=== PATIENT | male | born 1980 | race Caucasian/White ===

== ENCOUNTER 2016-10-12 07:58 | Emergency (ER) | payer OTHER ==
[~2016-10-12] VITALS: Ht 172.7 cm; Wt 65.0 kg
[~2016-10-12 07:58] MED LIST: ZOFR4TAB3 SL
[2016-10-12 08:00] VITALS: BP 126/80; PULSE 80; RESP 20; TEMP 97.6; O2SAT 99
[2016-10-12 08:25] VITALS: O2SAT 98
--- NOTE | 2016-10-12 08:28 | PD ---
HPI Chief Complaint: Chest Pain Time Seen by Provider: 08:17 Travel History International Travel<30 days: No Contact w/Intl Traveler<30days: No Traveled to known affect area: No History of Present Illness HPI 36 years old male complains of chest pain. Patient states the pain started about 5 hours prior coming to the emergency room. Patient states the pain is sharp and stabbing pain localized to left low rib cage. Patient denies any pain radiation. Patient states the pain is worse with deep breathing. Patient denies any nausea vomiting diaphoresis. Patient denies any palpitation. Patient denies history of CAD. Patient denies history hypertension, diabetes, dyslipidemia. Patient is a smoker. Patient states that he drank alcohol recently. Patient denies any history of pancreatitis or GI issue. On a scale from 1-10 the pain is an 8. Patient denies any coughing congestion. Patient denies any illicit drug abuse. PFSH Past Medical History Diminished Hearing: No Social History Alcohol Use: Yes (OCC) Tobacco Use: Yes (1 PPD) Substance Use: No Allergies-Medications (Allergen,Severity, Reaction): Coded Allergies: No Known Allergies (Verified , 01/24/16) Reported Meds & Prescriptions Reported Meds & Active Scripts Active Zofran ODT (Ondansetron HCl) 4 Mg Tab 4 Mg SL Q6HR FOR NAUSEA/VOMITING Review of Systems General / Constitutional: No: Fever Eyes: No: Visual changes HENT: No: Headaches Cardiovascular: Positive: Chest Pain or Discomfort Respiratory: No: Shortness of Breath Gastrointestinal: No: Abdominal Pain Genitourinary: No: Dysuria Musculoskeletal: No: Pain Skin: No Rash Neurologic: No: Weakness Psychiatric: No: Depression Endocrine: No: Polydipsia Hematologic/Lymphatic: No: Easy Bruising Physical Exam Narrative GENERAL: Well-nourished, well-developed patient. SKIN: Warm and dry. HEAD: Normocephalic. EYES: No scleral icterus. No injection or drainage. NECK: Supple, trachea midline. No JVD or lymphadenopathy. CARDIOVASCULAR: Regular rate and rhythm without murmurs, gallops, or rubs. RESPIRATORY: Breath sounds equal bilaterally. No accessory muscle use. GASTROINTESTINAL: Abdomen soft, nondistended. Patient has moderate tenderness on palpation epigastric and left upper quadrant of the abdomen. No rebound tenderness. No mass. MUSCULOSKELETAL: No cyanosis, or edema. BACK: Nontender without obvious deformity. No CVA tenderness. Neurologic exam normal. Data Data Last Documented VS Vital Signs Date Time Temp Pulse Resp B/P Pulse Ox O2 Delivery O2 Flow Rate FiO2 10/12/16 08:16 67 22 97 Room Air 10/12/16 08:00 97.6 126/80 Orders Electrocardiogram (10/12/16 ) Electrocardiogram (10/12/16 08:20) Complete Blood Count With Diff (10/12/16 08:20) Comprehensive Metabolic Panel (10/12/16 08:20) Prothrombin Time / Inr (Pt) (10/12/16 08:20) Act Partial Throm Time (Ptt) (10/12/16 08:20) Lipase (10/12/16 08:20) Urinalysis - C+S If Indicated (10/12/16 08:20) Alcohol (Ethanol) (10/12/16 08:20) Chest, Single Ap (10/12/16 08:20) Iv Access Insert/Monitor (10/12/16 08:20) Ecg Monitoring (10/12/16 08:20) Oximetry (10/12/16 08:20) Pantoprazole Inj (Protonix Inj) (10/12/16 08:30) Al-Mag Hy-Si 40-40-4 Mg/Ml Liq (Mag-Al P (10/12/16 08:30) Ggwmu-Jgxnfv-Enevbs-Pb Liq ( Liq (10/12/16 08:30) MDM Medical Decision Making Medical Screen Exam Complete: Yes Emergency Medical Condition: Yes Differential Diagnosis Differential diagnosis including musculoskeletal, angina, AK, PE, pneumothorax, gastritis, PUD, hepatitis, cholecystitis, colitis, UTI, pyelonephritis, nephrolithiasis. Narrative Course 36 years old male with left-sided chest pain and epigastric left upper quadrant abdominal pain. Protonix 40 mg IV given. Maalox 30 cc by mouth given. 10 cc by mouth given. Bentley Reyes MD Oct 12, 2016 08:28
[2016-10-12] MEDS ORDERED: PANTOPRAZOLE SODIUM 40 MG VIAL IV PUSH ONE (08:30)
[2016-10-12] MEDS ORDERED: ALUMINUM/MAGNESIUM/SIMETH 30 ML CUP PO ONE (08:30)
[2016-10-12] MEDS ORDERED: ATROPINE/SCOPOLAM/HYOSCYAM/PB ELIXIR 10 ML CUP PO ONE (08:30)
[2016-10-12 08:34] LABS: AUTOMATED NEUTROPHIL # 3.5 TH/MM3 (1.8-7.7); BASOPHIL # 0.1 TH/MM3 (0-0.2); BASOPHIL % 1.1 % (0.0-2.0); EOSINOPHIL # 0.2 TH/MM3 (0-0.4); EOSINOPHIL % 3.4 % (0.0-4.0); HEMATOCRIT 45.9 % (39.0-51.0); HEMO FLAGS DIFF FINAL; LYMPH % 28.9 % (9.0-44.0); LYMPHOCYTE # 1.8 TH/MM3 (1.0-4.8); MEAN CELL VOLUME 96.4 FL (80.0-100.0); MEAN CORPUSCULAR HEMOGLOBIN 34.5 PG (27.0-34.0); MEAN CORPUSCULAR HGB CONC 35.8 % (32.0-36.0); MONO % 10.2 % (0.0-8.0); NEUT % 56.4 % (16.0-70.0); PLATELET COUNT 236 TH/MM3 (150-450); RED BLOOD COUNT 4.76 MIL/MM3 (4.50-5.90); RED CELL DISTRIBUTION WIDTH 13.8 % (11.6-17.2); WHITE BLOOD COUNT 6.2 TH/MM3 (4.0-11.0)
[2016-10-12 08:48] LABS: INTERNATIONAL NORMALIZED RATIO 1.2 RATIO; PROTHROMBIN TIME - PATIENT 13.2 SEC (9.8-11.6)
--- NOTE | 2016-10-12 08:48 | RADRPT ---
EXAM DATE/TIME: 10/12/2016 08:31 [facility] COMPARISON: No previous studies available for comparison. INDICATIONS : Chest pain and shortness of breath. MEDICAL HISTORY : None. SURGICAL HISTORY : None. ENCOUNTER: Initial ACUITY: 1 day PAIN SCORE: 8/10 LOCATION: Left lower chest FINDINGS: A single view of the chest demonstrates the lungs to be symmetrically aerated without evidence of mas s, infiltrate or effusion. A few nodular foci in the right lower lobe. The cardiomediastinal contour s are unremarkable. Osseous structures are intact. CONCLUSION: No acute disease. A few nodular foci in the right lower lobe could be calcified granulomas. Donnell Montana MD on October 12, 2016 at 8:46 Board Certified Radiologist. This report was verified electronically.
[2016-10-12 08:57] LABS: APTT (PATIENT) 31.7 SEC (24.3-30.1)
[2016-10-12 09:00] LABS: ALKALINE PHOSPHATASE 95 U/L (45-117); ALT (GPT) 19 U/L (12-78); ANION GAP 10 MEQ/L (5-15); AST (GOT) 25 U/L (15-37); BICARBONATE 24.2 MEQ/L (21.0-32.0); BLOOD UREA NITROGEN 5 MG/DL (7-18); CHLORIDE 107 MEQ/L (98-107); GLOMERULAR FILTRATION RATE 80 ML/MIN (>89); POTASSIUM 4.1 MEQ/L (3.5-5.1); SODIUM (NA) 141 MEQ/L (136-145); TOTAL BILIRUBIN ADULT 0.4 MG/DL (0.2-1.0)
[2016-10-12] MEDS: RESP: ALBUTEROL 2.5 MG/IPRATROPIUM 0.5 MG NEB (SCH) INH (09:41)
[2016-10-12] MEDS ORDERED: SODIUM CHLOR 0.9% 1000 ML INJ 1,000 ML IV ONE (09:45)
[2016-10-12] MEDS ORDERED: ALBU6.7H INH (10:27)
[2016-10-12] MEDS ORDERED: FAMO1TAB37 PO (10:27)
[2016-10-12] MEDS ORDERED: PRED50 PO (10:27)
--- NOTE | 2016-10-12 10:27 | PD ---
Physical Exam Date Seen by Provider: Oct 12, 2016 Time Seen by Provider: 08:50 Narrative Patient signed out to me by Dr. Reyes, please see Dr. Reyes's note for further information. Coming in with left lower rib area and left upper quadrant abdominal pains. Nauseous, vomiting, has been coughing up greenish material. On exam, pulmonary exam shows bilateral mild wheezing with no crackles, not in respiratory distress. Abdominal exam shows mild left upper quadrant tenderness. EKG did not show any signs of acute changes. Chest x-ray shows no signs of acute pulmonary problems. Lower extremity exam did not reveal any signs of edema, calf tenderness. Patient is awake, alert, oriented 3. Laboratory Tests Test 10/12/16 08:30 Mean Corpuscular Hemoglobin 34.5 PG (27.0-34.0) Monocytes (%) (Auto) 10.2 % (0.0-8.0) Prothrombin Time 13.2 SEC (9.8-11.6) Activated Partial 31.7 SEC Thromboplast Time (24.3-30.1) Blood Urea Nitrogen 5 MG/DL (7-18) Estimat Glomerular Filtration 80 ML/MIN (>89) Rate Ethyl Alcohol Level 70 MG/DL (0-5) Last 24 hours Impressions Chest X-Ray 10/12/16 0820 Signed Impressions: Service Date/Time: October 08:31 - CONCLUSION: No acute disease. A few nodular foci in the right lower lobe could be calcified granulomas. Donnell oMntana MD Patient was given Protonix in the ER, IV fluids, and nebulizers. On reevaluation at 10 AM, patient is feeling improved, no longer is wheezing. At this point, abdomen is fairly benign and I do not suspect an acute intra- abdominal process. He does have alcohol on his system I suspect he may have some underlying alcoholic gastritis. In addition, he smokes and I think he has underlying bronchitis in this case. My plan would be to treat him for both and have him follow-up with primary care physician. Return for any worsening in symptoms as necessary. I have talked to the patient regarding smoking cessation and alcohol use of sensation in order to improve his symptoms. Patient states understanding. Data Data Last Documented VS Vital Signs Date Time Temp Pulse Resp B/P Pulse Ox O2 Delivery O2 Flow Rate FiO2 10/12/16 08:25 98 Room Air 10/12/16 08:16 67 22 10/12/16 08:00 97.6 126/80 Orders Electrocardiogram (10/12/16 ) Electrocardiogram (10/12/16 08:20) Complete Blood Count With Diff (10/12/16 08:20) Comprehensive Metabolic Panel (10/12/16 08:20) Prothrombin Time / Inr (Pt) (10/12/16 08:20) Act Partial Throm Time (Ptt) (10/12/16 08:20) Lipase (10/12/16 08:20) Urinalysis - C+S If Indicated (10/12/16 08:20) Alcohol (Ethanol) (10/12/16 08:20) Chest, Single Ap (10/12/16 08:20) Iv Access Insert/Monitor (10/12/16 08:20) Ecg Monitoring (10/12/16 08:20) Oximetry (10/12/16 08:20) Pantoprazole Inj (Protonix Inj) (10/12/16 08:30) Al-Mag Hy-Si 40-40-4 Mg/Ml Liq (Mag-Al P (10/12/16 08:30) Nfidv-Dcpfji-Gvlljv-Pb Liq ( Liq (10/12/16 08:30) Drug Screen, Random Urine (10/12/16 08:26) Creatine Kinase (Cpk) (10/12/16 08:27) Troponin I (10/12/16 08:27) Sodium Chlor 0.9% 1000 Ml Inj (Ns 1000 M (10/12/16 09:45) Albuterol-Ipratropium Neb (Duoneb Neb) (10/12/16 09:45) Labs Laboratory Tests Test 10/12/16 08:30 White Blood Count 6.2 TH/MM3 Red Blood Count 4.76 MIL/MM3 Hemoglobin 16.4 GM/DL Hematocrit 45.9 % Mean Corpuscular Volume 96.4 FL Mean Corpuscular Hemoglobin 34.5 PG Mean Corpuscular Hemoglobin 35.8 % Concent Red Cell Distribution Width 13.8 % Platelet Count 236 TH/MM3 Mean Platelet Volume 8.8 FL Neutrophils (%) (Auto) 56.4 % Lymphocytes (%) (Auto) 28.9 % Monocytes (%) (Auto) 10.2 % Eosinophils (%) (Auto) 3.4 % Basophils (%) (Auto) 1.1 % Neutrophils # (Auto) 3.5 TH/MM3 Lymphocytes # (Auto) 1.8 TH/MM3 Monocytes # (Auto) 0.6 TH/MM3 Eosinophils # (Auto) 0.2 TH/MM3 Basophils # (Auto) 0.1 TH/MM3 CBC Comment DIFF FINAL Differential Comment Prothrombin Time 13.2 SEC Prothromb Time International 1.2 RATIO Ratio Activated Partial 31.7 SEC Thromboplast Time Sodium Level 141 MEQ/L Potassium Level 4.1 MEQ/L Chloride Level 107 MEQ/L Carbon Dioxide Level 24.2 MEQ/L Anion Gap 10 MEQ/L Blood Urea Nitrogen 5 MG/DL Creatinine 1.05 MG/DL Estimat Glomerular Filtration 80 ML/MIN Rate Random Glucose 86 MG/DL Calcium Level 8.8 MG/DL Total Bilirubin 0.4 MG/DL Aspartate Amino Transf 25 U/L (AST/SGOT) Alanine Aminotransferase 19 U/L (ALT/SGPT) Alkaline Phosphatase 95 U/L Total Protein 7.4 GM/DL Albumin 4.1 GM/DL Lipase 82 U/L Ethyl Alcohol Level 70 MG/DL [facility] Medical Record Reviewed: Yes Supervised Visit with [place]: No Diagnosis Primary Impression: ACUTE BRONCHITIS, UNSPECIFIED Additional Impression: ALCOHOLIC GASTRITIS WITHOUT BLEEDING Med/Other Pt SpecificInfo: Prescription(s) given Scripts Prednisone 50 Mg Tab50 Mg PO DAILY #5 TAB Ref 0 Prov:Clarence Palmer MD 10/12/16 Albuterol 6.7 GM Inh (Proventil Hfa 6.7 GM Inh)90 Mcg/Act Aer2 Puff INH Q4-6H PRN (SHORTNESS OF BREATH) #1 INHALER Ref 0 Prov:Clarence Palmer MD 10/12/16 Famotidine (Pepcid)20 Mg Tab20 Mg PO BID #14 TAB Ref 0 Prov:Clarence Palmer MD 10/12/16 Disposition: 01 DISCHARGE HOME Condition: Stable Clarence Palmer MD Oct 12, 2016 10:27
[2016-10-12 10:45] LABS: CREATINE KINASE 164 U/L (39-308)
[2016-10-12 11:04] VITALS: BP 117/78; PULSE 78; RESP 20; TEMP 97.6; O2SAT 99
--- NOTE | 2016-10-13 06:49 | EKG ---
Date Performed: 10/12/2016 Time Performed: 08:22:03 PTAGE: 36 years EKG: Sinus rhythm NORMAL ECG INTERPRETATION BASED ON A DEFAULT AGE OF 40 YEARS NO PREVIOUS TRACING DOCTOR: Alon Mora Interpretating Date/Time 10/13/2016 06:46:35
== END 2016-10-12 11:28 | disposition home or self-care (01) ==
LOC: NEPE 07:58
DX: J20.9 Acute bronchitis, unspecified (principal); K29.20 Alcoholic gastritis without bleeding; F17.210 Nicotine dependence, cigarettes, uncomplicated; F10.10 Alcohol abuse, uncomplicated; Y90.3 Blood alcohol level of 60-79 mg/100 ml
CPT/HCPCS: 71010; 80053; 80320; 82550; 83690; 84484; 85025; 85610; 85730; 93005; 94640; 94664; 96361; 96374; 99285; C9113; J7030

== ENCOUNTER 2016-12-18 13:05 | Emergency (ER) | payer OTHER ==
[~2016-12-18] VITALS: Ht 170.2 cm; Wt 60.0 kg
[~2016-12-18 13:05] MED LIST changes: +ALBU6.7H INH; +FAMO1TAB37 PO; +PRED50 PO
[2016-12-18 13:10] VITALS: BP 135/96; PULSE 73; RESP 15; TEMP 98.8; O2SAT 97
--- NOTE | 2016-12-18 14:23 | PD ---
HPI Chief Complaint: Injury Time Seen by Provider: 14:23 Travel History International Travel<30 days: No Contact w/Intl Traveler<30days: No Traveled to known affect area: No History of Present Illness HPI 36-year-old male presents to emergency Department with complaint of right fifth toe pain from after someone at his job dropped a 55 gallon water barrel on his toe. He is requesting an x-ray because his job wants to know if the toe is fractured. He denies loss of sensation to the toe. Reports tenderness and edema to the toe. Has not taken any medications or tried any treatments to alleviate his symptoms. No known allergies. No other modifying factors or associated signs and symptoms. PFSH Past Medical History Medical History: Denies Significant Hx Diminished Hearing: No Tetanus Vaccination: > 5 Years Past Surgical History Surgical History: No Previous Surgery Social History Alcohol Use: Yes (OCC) Tobacco Use: Yes (1 PPD) Substance Use: No Allergies-Medications (Allergen,Severity, Reaction): Coded Allergies: No Known Allergies (Verified , 12/18/16) Reported Meds & Prescriptions Reported Meds & Active Scripts Active Ibuprofen 800 Mg Tab 800 Mg PO Q6HR PRN Review of Systems Except as stated in HPI: all other systems reviewed are Neg Physical Exam Narrative GENERAL: Well-nourished, well-developed male patient, in no acute distress SKIN: Warm and dry. HEAD: Atraumatic. Normocephalic. EYES: Pupils equal and round. No scleral icterus. No injection or drainage. ENT: Mucosa pink and moist. Airway patent. NECK: Trachea midline. CARDIOVASCULAR: Regular rate. RESPIRATORY: No accessory muscle use. GASTROINTESTINAL: Flat. MUSCULOSKELETAL: Right fifth toe is mildly edematous and without erythema or ecchymosis; with tenderness on palpation; less than 3 second cap refill; toes pink and warm; no obvious deformity. Right lower extremity supple and non- tense with 2+ pedal pulses and sensory intact. No obvious deformities. No clubbing. No cyanosis. No edema. NEUROLOGICAL: Awake and alert. Oriented 3. No obvious cranial nerve deficits. Motor grossly within normal limits. Normal speech. PSYCHIATRIC: Appropriate mood and affect; insight and judgment normal. Data Data Last Documented VS Vital Signs Date Time Temp Pulse Resp B/P Pulse Ox O2 Delivery O2 Flow Rate FiO2 12/18/16 13:10 98.8 73 15 135/96 97 Orders Toe (Min 2vws) (12/18/16 ) [facility] Medical Decision Making Medical Screen Exam Complete: Yes Emergency Medical Condition: Yes Medical Record Reviewed: Yes Differential Diagnosis Toe fracture, toe contusion, toe sprain Narrative Course 36-year-old male with right fifth toe injury. His work is requesting an x-ray because he wants to know if the toe is fractured. Right fifth toe x-ray ordered. 1505: Right fifth toe x-ray concludes no acute findings. Ibuprofen prescribed for home. Patient verbalizes understanding and agreement with treatment plan. Patient is medically cleared and stable for discharge. Discussed reasons to return to the emergency department. Instructed patient to follow up with primary care provider. Patient agrees with treatment plan. The patients vital signs are stable and the patient is stable for outpatient follow-up and treatment. Patient discharged home, stable and in no acute distress. Diagnosis Primary Impression: Injury of toe on right foot Qualified Code: S99.921A - Injury of toe on right foot, initial encounter Referrals: Primary Care Physician Patient Instructions: General Instructions Departure Forms: Tests/Procedures, Work Release Enter return to work date: Dec 18, 2016 Additional Instructions: Ibuprofen or Tylenol as directed and as needed for pain and inflammation Ice to affected area to reduce pain and inflammation Avoid aggravating activities; increase activity as tolerated Follow-up with primary care provider Return to the emergency department immediately with worsening of symptoms Med/Other Pt SpecificInfo: Prescription(s) given Scripts Ibuprofen 800 Mg [id number] Mg PO Q6HR PRN (PAIN) #30 TAB Ref 0 Prov:Nereida Marshall 12/18/16 Disposition: 01 DISCHARGE HOME Condition: Stable Nereida Marshall Dec 18, 2016 14:23
[2016-12-18] MEDS ORDERED: IBUP800T23 PO (14:53)
--- NOTE | 2016-12-18 15:00 | RADRPT ---
EXAM DATE/TIME: 12/18/2016 14:41 [facility] COMPARISON: No previous studies available for comparison. INDICATIONS : 55 lb water bucket fell on his right 5th digit 4 days ago. MEDICAL HISTORY : None. SURGICAL HISTORY : None. ENCOUNTER: Initial ACUITY: 4 - 6 days PAIN SCORE: 6/10 LOCATION: Right 5 th digit FINDINGS: Examination of the fifth digit of the right foot demonstrates no evidence of fracture or dislocation. No radiopaque foreign bodies are seen. The soft tissues are intact. CONCLUSION: No acute disease. Buzz Mittal MD on December 18, 2016 at 14:58 Board Certified Radiologist. This report was verified electronically.
== END 2016-12-18 15:52 | disposition home or self-care (01) ==
LOC: NEPK 13:05
DX: S99.921A Unspecified injury of right foot, initial encounter (principal); W20.8XXA Other cause of strike by thrown, projected or falling object, initial encounter; Y99.0 Civilian activity done for income or pay
CPT/HCPCS: 73660; 99283

== ENCOUNTER 2018-01-28 23:01 | Emergency (ER) | payer OTHER ==
[~2018-01-28] VITALS: Ht 175.3 cm; Wt 59.1 kg
[~2018-01-28 23:01] MED LIST changes: -ALBU6.7H INH; -FAMO1TAB37 PO; +IBUP1TAB7 PO; -PRED50 PO; -ZOFR4TAB3 SL
[2018-01-28 23:03] VITALS: BP 117/73; PULSE 81; RESP 16; TEMP 98.1; O2SAT 98
[2018-01-28] MEDS ORDERED: LIDOCAINE 1%/EPINEPHrine 1:100,000 SOLN 50 ML VIAL INFIL ONE (23:45)
[2018-01-28] MEDS ORDERED: TETANUS/DIPHTHERIA TOXOID ADULT 0.5 ML VIAL IM ONE (23:45)
--- NOTE | 2018-01-28 23:45 | PD ---
HPI Chief Complaint: Laceration/Skin Injury Time Seen by Provider: 23:27 Travel History International Travel<30 days: No Contact w/Intl Traveler<30days: No Traveled to known affect area: No History of Present Illness HPI 38-year-old right-hand dominant white male presents emergency department by EMS for evaluation of a laceration to his left forearm which occurred prior to arrival using a circular saw. Patient states that he was cutting a piece of wood and had taken the guard off the circular saw. Patient states that the saw lacerated his left forearm. He is NOT up-to-date with immunizations. He denies any numbness or tingling. Pain is mild to moderate. Worse with movement. He admits to drinking alcohol prior to using a circular saw. PFSH Past Medical History Medical History: Denies Significant Hx Diminished Hearing: No Tetanus Vaccination: > 5 Years Influenza Vaccination: No Past Surgical History Surgical History: No Previous Surgery Social History Alcohol Use: Yes (OCC) Tobacco Use: Yes (1 PPD) Substance Use: Yes (MJ) Allergies-Medications (Allergen,Severity, Reaction): Coded Allergies: No Known Allergies (Verified Adverse Reaction, Unknown, 01/28/18) Reported Meds & Prescriptions Reported Meds & Active Scripts Active Ibuprofen 800 Mg Tab 800 Mg PO Q6HR PRN Review of Systems General / Constitutional: No: Fever Eyes: No: Visual changes HENT: No: Headaches Cardiovascular: No: Chest Pain or Discomfort Respiratory: No: Shortness of Breath Gastrointestinal: No: Abdominal Pain Genitourinary: No: Dysuria Musculoskeletal: Positive: Edema, Pain, No: Limited ROM Skin: No Rash Neurologic: No: Weakness, Paresthesia Psychiatric: No: Depression Endocrine: No: Polydipsia Hematologic/Lymphatic: No: Easy Bruising Physical Exam Narrative GENERAL: This is a well-nourished, well-developed patient, in no apparent distress. SKIN: No rashes, ecchymoses or lesions. Warm and dry. HEAD: Atraumatic. Normocephalic. EYES: PERRL, EOMI, no discharge or injection. No scleral icterus. EARS: Clear NOSE: Nasal turbinates appear normal. THROAT: Mucosa pink and moist. Airway patent. NECK: Trachea midline. supple, moves head freely. LUNGS: Clear to auscultation. CV: Regular in rhythm. ABDOMEN: Soft nontender. EXT: No clubbing cyanosis or edema. Patient has a large laceration to the left volar forearm from the area of the wrist down to the proximal forearm. The laceration measures approximately 14 cm. The laceration goes through the subcutaneous tissues. There is no tendon, nerve, or joint injury. Patient has full range of motion full-strength. Neurovascular intact distally. Data Data Last Documented VS Vital Signs Date Time Temp Pulse Resp B/P (MAP) Pulse Ox O2 Delivery O2 Flow Rate FiO2 01/28/18 23:03 98.1 81 16 117/73 (88) 98 Orders Orders Tetanus/Diphtheria Tox Adult (Tetanus/Di (01/28/18 23:45) Lidocai-Epi 1%-1:100,000 Inj (Xylocaine- (01/28/18 23:45) Ed Discharge Order (01/29/18 00:12) MDM Medical Decision Making Medical Screen Exam Complete: Yes Emergency Medical Condition: Yes Medical Record Reviewed: Yes Differential Diagnosis MDM: High Differential diagnoses: Fracture, sprain, strain, dislocation, contusion, neurovascular injury Narrative Course Patient's tetanus status updated. Procedures Procedure Narrative LACERATION LOCATION: Left volar forearm LENGTH: 14 cm NUMBER OF STITCHES/JUNIOR: 35 REPAIR: The area of the laceration was prepped with Betadine and sterilely draped. The laceration was infiltrated with 1% lidocaine with epinephrine. The wound was copiously irrigated and explored without evidence of foreign body , tendon injury or neurovascular injury. The skin is approximated using 4-0 Vicryl subcutaneous sutures. The wound was closed using junior. This was a intermediate 2 layer repair. A sterile dressing was applied. The patient was advised to keep the dressing clean and dry. Patient tolerated the procedure well. Diagnosis Primary Impression: Left forearm laceration Patient Instructions: General Instructions Additional Instructions: Rest. Elevation. Tylenol and Advil for pain. Daily wound care with soap, water, Neosporin. Sutures out in 10-12 days. Return to the ER if any problems. Med/Other Pt SpecificInfo: Wound Care Disposition: 01 DISCHARGE HOME Condition: Stable Ilan Gage January 28, 2018 23:45
== END 2018-01-29 00:30 | disposition home or self-care (01) ==
LOC: NEPD 23:01
DX: S51.812A Laceration without foreign body of left forearm, initial encounter (principal); W31.2XXA Contact with powered woodworking and forming machines, initial encounter; Y93.89 Activity, other specified; Z23 Encounter for immunization
CPT/HCPCS: 12035; 90471; 90714